=== PATIENT | female | born 1990 | race Caucasian/White ===

== ENCOUNTER 2016-04-13 10:20 | Emergency (ER) | payer BC ==
[2016-04-13 13:15] VITALS: BP 133/82
--- NOTE | 2016-04-13 14:04 | UC ---
Eye Complaint HPI - HPI Summary HPI Summary: PT WITH 2 DAY H/O OF LT EYE IRRITATION AND CLEAR DRAINAGE. IRRITATION FEELS LIKE IT IS ON THE INSIDE OF THE EYELID. NO VISUAL CHANGES. NO RECENT HAMMERING GRINDING SANDING ETC. NO FB SENSATION. WORSE WITH LED OPEN. BETTER WITH LID CLOSED. PT WEARS CONTACTS - History of Current Complaint Chief Complaint: UCEye Stated Complaint: LEFT EYE COMPLAINT Time Seen by Provider: 04/13/16 13:10 Hx Obtained From: Patient Hx Last Menstrual Period: 03/16/16 Onset/Duration: Gradual Onset, Lasting Days - 2, Still Present Timing: Constant Severity Initially: Mild Severity Currently: Mild Pain Intensity: 3 Pain Scale Used: 0-10 Numeric Location of Injury: Eye Lid (lower) Character: Dull Aggravating Factor(s): Other - EYE OPEN Alleviating Factor(s): Other - EYE CLOSED Associated Signs And Symptoms: Positive: Drainage (Clear). Negative: Photophobia, Drainage (Purulent), Vision Impairment Bilateral, Fever, Swelling - Risk Factors Penetrating Injury Risk Factor: Negative - Allergies/Home Medications Allergies/Adverse Reactions: Allergies Allergy/AdvReac Type Severity Reaction Status Date / Time No Known Allergies Allergy Verified 04/13/16 13:09 PMH/Surg Hx/FS Hx/Imm Hx Endocrine History Of: Denies: Diabetes, Thyroid Disease Cardiovascular History Of: Denies: Cardiac Disorders, Hypertension Respiratory History Of: Reports: Asthma Denies: COPD GI/ History Of: Denies: Ulcer - Surgical History Surgical History: None - Family History Known Family History: Positive: None Negative: Cardiac Disease, Hypertension, Diabetes, Blood Disorder - Social History Lives: With Family Alcohol Use: Weekly Alcohol Amount: 3 times a week Substance Use Type: Marijuana Substance Use Comment - Amount & Last Used: occasional Smoking Status (MU): Never Smoked Tobacco - Immunization History Most Recent Influenza Vaccination: no Review of Systems Constitutional: Negative Skin: Negative Eyes: Drainage, Other - SEE HPI ENT: Negative Respiratory: Negative Cardiovascular: Negative Gastrointestinal: Negative Genitourinary: Negative Motor: Negative Neurovascular: Negative Musculoskeletal: Negative Neurological: Negative Psychological: Negative All Other Systems Reviewed And Are Negative: Yes Physical Exam Triage Information Reviewed: Yes Appearance: Well-Appearing, No Pain Distress, Well-Nourished Vital Signs: Initial Vital Signs Temp 98.1 F 04/13/16 13:11 Pulse 93 04/13/16 13:11 Resp 16 04/13/16 13:11 BP 133/82 04/13/16 13:11 Pulse Ox 100 04/13/16 13:11 Vital Signs Reviewed: Yes Eyes: Positive: Conjunctiva Clear, Discharge - CLEAR, Other: - STY ON LOWER LFT EYELID. VISUAL FEILDS INTACT. CORNEA CLEAR ENT: Positive: Hearing grossly normal. Negative: Muffled/hoarse voice Neck exam: Normal Respiratory: Positive: Lungs clear, Normal breath sounds, No respiratory distress, No accessory muscle use Cardiovascular: Positive: RRR, No Murmur Musculoskeletal Exam: Normal Musculoskeletal: Positive: Strength Intact Neurological Exam: Normal Neurological: Positive: Alert, Muscle Tone Normal Psychological Exam: Normal Psychological: Positive: Normal Response To Family Skin Exam: Normal Eye Complaint Course/Dx - Course Course Of Treatment: PT INSTRUCTED TO LEAVE CONTACT OUT UNTIL SX RESOLVED. - Differential Dx/Diagnosis Differential Diagnosis/HQI/PQRI: Conjunctivitis, Periorbital Cellulitis, Other - STY, CHALAZION Provider Diagnoses: STY Discharge - Discharge Plan Condition: Stable Disposition: HOME Prescriptions: Albuterol HFA INHALER* [Ventolin HFA Inhaler*] 2 puff INH Q4H PRN #1 mdi PRN Reason: Sob/Wheezing Erythromycin OPTH OINT* 1 applic LEFT EYE QID #1 tube Patient Education Materials: Jamie (ED) Forms: *Work Release Referrals: Angie Centeno PA [Primary Care Provider] - If Needed
== END 2016-04-13 13:52 | disposition home or self-care (01) ==
LOC: UCCORT 10:20
DX: H00.015 Hordeolum externum left lower eyelid (principal); J45.909 Unspecified asthma, uncomplicated
CPT/HCPCS: 99212; G0463

== ENCOUNTER 2016-05-05 07:58 | Emergency (ER) | payer BC ==
[2016-05-05 08:07] VITALS: BP 140/86
--- NOTE | 2016-05-05 08:19 | UC ---
Throat Pain/Nasal Fareed HPI - HPI Summary HPI Summary: complaint of cough and nasal congestion started having sinus pressure he last 4 days intermittent headaches cough is productive with yellow sputum denies fever,ear pain, sore throat, shortness of breath has used her rescus inhaler 4 days in the last week for uncontrolled coughing taking dayquil and nyquil without much relief. - History of Current Complaint Chief Complaint: UCGeneralIllness Stated Complaint: COUGH Time Seen by Provider: 05/05/16 08:10 Hx Obtained From: Patient Hx Last Menstrual Period: 04/14/16 Related History: Seasonal Allergies - Allergies/Home Medications Allergies/Adverse Reactions: Allergies Allergy/AdvReac Type Severity Reaction Status Date / Time No Known Allergies Allergy Verified 04/13/16 13:09 PMH/Surg Hx/FS Hx/Imm Hx Previously Healthy: Yes Endocrine History Of: Denies: Diabetes, Thyroid Disease Cardiovascular History Of: Denies: Cardiac Disorders, Hypertension Respiratory History Of: Reports: Asthma Denies: COPD GI/ History Of: Denies: Ulcer - Surgical History Surgical History: None - Family History Known Family History: Positive: None Negative: Cardiac Disease, Hypertension, Diabetes, Blood Disorder - Social History Occupation: Employed Full-time Alcohol Use: Weekly Alcohol Amount: 3 times a week Substance Use Type: Marijuana Substance Use Comment - Amount & Last Used: occasional Smoking Status (MU): Never Smoked Tobacco - Immunization History Most Recent Influenza Vaccination: no Review of Systems Constitutional: Negative Skin: Negative Eyes: Negative ENT: Nasal Discharge Respiratory: Cough Cardiovascular: Negative Gastrointestinal: Negative Genitourinary: Negative Motor: Negative Neurovascular: Negative Musculoskeletal: Negative Neurological: Negative Psychological: Negative All Other Systems Reviewed And Are Negative: Yes Physical Exam Triage Information Reviewed: Yes Appearance: No Pain Distress Vital Signs: Initial Vital Signs Temp 97.9 F 05/05/16 08:03 Pulse 90 05/05/16 08:03 Resp 16 05/05/16 08:03 BP 140/86 05/05/16 08:03 Pulse Ox 96 05/05/16 08:03 Vital Signs Reviewed: Yes Eyes: Positive: Conjunctiva Clear ENT: Positive: Pharyngeal erythema, Nasal congestion, TM bulging, Other: - fronmtal nad maxillary sinus tenderness. Negative: TM red Neck: Positive: No Lymphadenopathy Cardiovascular: Positive: RRR, No Murmur Abdomen Description: Positive: Nontender, Soft Bowel Sounds: Positive: Present Musculoskeletal: Positive: No Edema Neurological: Positive: Alert Psychological Exam: Normal Skin Exam: Normal Throat Pain/Nasal Course/Dx - Course Course Of Treatment: exam complated. will treat with antibiotic d/t length of illness ,sinus tenderness - Differential Dx/Diagnosis Differential Diagnosis/HQI/PQRI: Sinusitis Provider Diagnoses: sinusitis Discharge - Discharge Plan Condition: Stable Disposition: HOME Prescriptions: Amoxicillin/Clavulanate TAB* [Augmentin TAB 875*] 875 mg PO BID #20 tab Patient Education Materials: Nasal Rinse (ED), Sinusitis (ED) Referrals: Angie Centeno PA [Primary Care Provider] - Additional Instructions: Please take antibiotic as directed. rinse sinuses daily with normal saline spray use albuterol inhaler as needed. Increase fluids and rest Take acetaminophen for fever or pain Please review your discharge instructions. If your symptoms do not improve please call your primary care provider or return to urgent care.
== END 2016-05-05 08:30 | disposition home or self-care (01) ==
LOC: UCEAST 07:58
DX: J32.9 Chronic sinusitis, unspecified (principal)
CPT/HCPCS: 99212; G0463

== ENCOUNTER 2016-10-19 11:14 | Emergency (ER) | payer BC | END 2016-10-19 11:55 | disposition left against medical advice (07) | LOC: UCEAST 11:14 | DX: R42 Dizziness and giddiness (principal) ==

== ENCOUNTER 2022-11-01 02:39 | Inpatient (IN) ==
[2022-11-01] MEDS ORDERED: Promethazine INJ(RESTRICTED) 25 MG/ML 1 ml VIAL IV PRN (03:07)
[2022-11-01] MEDS ORDERED: Buffered Lidocaine 1% SYRIN 1 ml INTRADERM ONE (03:07)
[2022-11-01] MEDS ORDERED: Nalbuphine 10 MG/ML 1 ML VIAL IV PRN (03:07)
[2022-11-01] MEDS ORDERED: Lactated Ringers 1000 ml BAG 1,000 ML IV ONE (03:07)
[2022-11-01] MEDS ORDERED: Calcium Carb (TUMS) 500 mg CHEW TAB PO PRN (03:12)
[2022-11-01 03:33] LABS: ABS Eosinophils 0.1 10^3/uL (0.0-0.5); ABS Lymphocytes 2.5 10^3/uL (1.0-4.8); ABS Monocytes 1.2 10^3/uL (0.0-0.9); ABS Neutrophils 4.9 10^3/uL (1.5-7.6); ABS Nucleated RBC 0.01 10^3/ul; Eosinophil % 1.6 %; Hematocrit 36.4 % (35-45); Hemoglobin 13.1 g/dL (11.5-14.3); Lymphocyte % 28.5 %; Mean Corpuscular Hemoglobin 30.7 pg (27-33); Mean Corpuscular Volume 85.4 fL (80-97); Mean Platelet Volume 8.1 fL (7.5-11.2); Nucleated Red Blood Cells % 0.1 /100 WBC (0.0-0.4); Platelet Count 268 10^3/uL (150-450); Red Blood Count 4.27 10^6/uL (3.63-4.92); Red Cell Distribution Width 12.7 % (12-17); White Blood Count 8.8 10^3/uL (3.8-11.8)
[2022-11-01] MEDS ORDERED: OBEPIDURAL (200 ML) 0 ML EPIDURAL ONE (03:58)
[2022-11-01 03:59] LABS: Urine Benzodiazepine Screen None Detected (None Detect); Urine Cannabinoids Screen None Detected (None Detect); Urine Opiates Screen None Detected (None Detect)
[2022-11-01] MEDS ORDERED: Lidocaine 2% w/ EPI 1:200,000 MPF 20 ML SDV VIAL ONE (03:59)
[2022-11-01] MEDS ORDERED: Lactated Ringers 1000 ml BAG 1,000 ML IV SCH ×2 (04:00→06:00)
[2022-11-01] MEDS ORDERED: Oxytocin in LR 20,000 MILLI.UNIT/1,000 ML BAG IV ONE (04:56)
[2022-11-01] MEDS ORDERED: Lidocaine 2% JELLY 6 ML Topical TOPICAL ONE ×2 (05:11→05:42)
[2022-11-01] MEDS ORDERED: Glycerin ADULT 2.4 gm SUPP PR PRN (05:35)
[2022-11-01] MEDS ORDERED: Lidocaine 1% MPF 2 ML VIAL SUBCUT ONE (05:40)
[2022-11-01] MEDS ORDERED: Oxytocin in LR 20,000 MILLI.UNIT/1,000 ML BAG IV SCH (05:45)
[2022-11-01] MEDS ORDERED: Lidocaine 1% VIAL 10 MG/ML VIAL 30 ML ONE (07:57)
[2022-11-02 06:32] LABS: ABS Eosinophils 0.2 10^3/uL (0.0-0.5); ABS Lymphocytes 2.1 10^3/uL (1.0-4.8); ABS Monocytes 1.1 10^3/uL (0.0-0.9); Eosinophil % 1.6 %; Hematocrit 31.8 % (35-45); Hemoglobin 11.3 g/dL (11.5-14.3); Lymphocyte % 22.5 %; Mean Corpuscular Hemoglobin 31.2 pg (27-33); Mean Corpuscular Hgb Conc 35.4 g/dL (31-36); Mean Corpuscular Volume 88.1 fL (80-97); Mean Platelet Volume 7.7 fL (7.5-11.2); Platelet Count 181 10^3/uL (150-450); Red Blood Count 3.61 10^6/uL (3.63-4.92); Red Cell Distribution Width 12.7 % (12-17); White Blood Count 9.4 10^3/uL (3.8-11.8)
[2022-11-02 08:34] VITALS: BP 122/89
[2022-11-02] MEDS: Dibucaine 1% OINT 28.35 GM TUBE PR PRN ×2 (08:52→16:42)
[2022-11-02] MEDS: Witch Hazel PAD JAR TOPICAL PRN ×2 (08:53→16:42)
== END 2022-11-02 17:57 | disposition home or self-care (01) | DRG 560 ==
LOC: MCHOBOUT 02:39 → MCHOB 02:45
PROVIDERS: ADMIT Advanced Practice Midwife; ATTEND Advanced Practice Midwife